=== PATIENT | male | born 1980 | race Caucasian/White ===

== ENCOUNTER → 2023-02-15 | Outpatient (CLI) | payer OTHER, SELFPAY ==
[2023-02-15 12:49] LABS: Absolute Lymphocyte Count 1.12 X10^3/uL (0.83-4.51); Basophil# 0.02 X10^3/uL; Basophil% 0.4 % (0-1); Lymphocyte # 1.12 X10^3/ul (0.83-4.51); Lymphocyte % 23.3 % (19-41); Mean Corp Hgb Conc 35.6 g/dL (32-36); Mean Corpuscular Hgb 31.6 pg (27.0-32.0); Mean Corpuscular Volume 88.9 fL (80-94); Mean Platelet Vol. 9.4 fl (6.2-12.0); Monocyte# 0.62 X10^3/uL; Monocyte% 12.9 % (0-10); NRBC Flagged by Analyzer 0 % (0-5); Neutrophil # 3.03 X10^3/uL (2.7-7.7); Neutrophil % 63.2 % (47-70); Platelet Count 125 K/mm3 (150-450); RBC Distribution Width SD 38.7 fl (35.1-43.9); Red Blood Count 5.06 M/mm3 (4.6-6.2); White Blood Count 4.8 K/mm3 (4.4-11.0)
[2023-02-15 13:05] LABS: ALB/GLOB Ratio 1.2 RATIO (0.9-2.4); AST(SGOT) 27 U/L (15-37); Alanine Aminotransfer ALT/SGPT 30 U/L (16-61); Albumin, Serum 4.1 g/dL (3.2-5.0); Alkaline Phosphatase 79 U/L (45-117); Anion Gap 5 (5-15); BUN 12 mg/dL (7-18); BUN/Creat Ratio 10.2 RATIO (10-20); Calcium,Total 8.9 mg/dL (8.5-10.1); Chloride 103 mmol/L (98-107); Creatinine, Serum 1.18 mg/dL (0.70-1.30); EST Glomerular Filtration Rate 71 mL/min (>60); Est Glom Filt Rate - Afr Amer 86 mL/min (>60); Globulin 3.3 g/dL (2.2-4.2); Glucose 98 mg/dL (74-106); Potassium 3.7 mmol/L (3.5-5.1); Protein, Total 7.4 g/dL (6.4-8.2); Sodium Level 136 mmol/L (136-145)
== END | disposition home or self-care (01) ==
DX: R19.7 Diarrhea, unspecified (principal)
CPT/HCPCS: 36415; 80053; 85025

== ENCOUNTER 2023-03-26 17:07 | Emergency (ER) | payer OTHER, SELFPAY ==
[2023-03-26 17:10] VITALS: BP 133/74; PULSE 73; RESP 14; TEMP 36.4; O2SAT 98; BMI 26.9
--- NOTE | 2023-03-26 17:51 | RAD_ITS ---
EXAM: XR LEFT FINGERS, 2 OR MORE VIEWS CLINICAL INDICATION: injury -- index TECHNIQUE: Frontal, lateral and oblique views of the fingers of the left hand. COMPARISON: No relevant prior studies available. FINDINGS: BONES/JOINTS: See below. SOFT TISSUES: There is soft tissue laceration of the tip of the 2nd digit. There is no underlying fracture. No soft tissue swelling or gas. No radiopaque foreign body. RAD/Finger(s) Min 2 Views IMPRESSION: There is soft tissue laceration of the tip of the 2nd digit. There is no underlying fracture. Electronically Signed: Dao Bonilla MD at 18:55 EDT ,
--- NOTE | 2023-03-26 17:52 | EX.ED.UPPERE ---
HPI History of Present Illness Chief Complaint: Upper Extremity Injury Detail of Chief Complaint: Left index finger injury Informant: patient Onset/Context/Timing Onset: Today Current Severity: Mild Maximum Severity: Moderate Narrative Narrative: Patient presents with injury to his left index finger. 6 to 8 hours ago he was at work and got his finger smashed between 2 logs. He has a large laceration of the distal aspect of his left index finger. He is right-hand dominant. He is unsure of his last tetanus update. PFSH PFSH Medical History no medical history no medical history Home Medications cephalexin 500 mg capsule 500 mg PO Q12 #14 CAPSULES 03/26/23 [Rx Last Taken Unknown] Allergy/AdvReac Type Severity Reaction Status Date / Time No Known Allergies Allergy Verified 03/26/23 17:09 Social History Smoking Status: Never smoker ROS ROS ED Constitutional Constitutional ED: Denies chills or fever(s) Eyes Eyes: Denies discharge from eye(s) ENT ENT ED: Denies discharge from eye(s), rhinorrhea or sore throat Cardiovascular Cardiovascular: Denies chest pain Respiratory/Chest Respiratory/Chest: Denies cough or dyspnea Gastrointestinal Gastrointestinal: Denies abdominal pain, nausea or vomiting Musculoskeletal Musculoskeletal: Reports extremity pain; Denies back pain Integumentary Reports other Details: Laceration ; Denies Abrasions or rash Neurologic Neurologic: Denies headache(s) or weakness Psychiatric Psychiatric: Denies anxiety or depression Allergic/Immunologic Allergic/Immunologic ED: Denies lip swelling or urticaria EXAM Physical Exam Const Vital Signs: 03/26/23 17:10 Temperature 97.6 F L Temperature Source Temporal Pulse Rate 73 Respiratory Rate 14 Blood Pressure 133/74 H Blood Pressure Mean 93 Pulse Ox 98 Oxygen Delivery Method Room Air Positive well nourished and well developed General Appearance ED: well developed HEENT Reports normocephalic and head/scalp atraumatic Eyes PERRL and EOMs intact bilaterally Neck supple Chest Wall inspection of chest normal and palpation of chest normal Resp normal respiratory effort and clear to auscultation bilaterally Cardio regular rate and regular rhythm GI non-tender Palpation: soft Extremity Extremity Narrative: Large laceration over the distal aspect of the left index finger. Nail has been completely avulsed. Neuro oriented x3 Sensorium / Orientation: alert Psych mental status grossly normal MDM MDM MDM Narrative Medical decision making narrative: Patient declined anything for pain. Tetanus is updated. Left index finger x-rays obtained to evaluate for fracture. Treatment and Re-Evaluation Narrative: Left index finger x-ray per my interpretation reveals no evidence of bony injury. Soft tissue injury is noted. Digital block is performed with 3.5 cc of 1% lidocaine. Patient receives good anesthesia. Wound is thoroughly cleansed and irrigated. A total of 8 sutures are placed to repair the wound. 7 sutures are 5-0 nylon and 1 suture across the nailbed is 5 -0 rapid Vicryl. Finger will be cleansed and splinted. He will be treated with antibiotics. He does not want anything for pain at home. Patient is to have sutures removed in 1 week. Discharge Plan Triage Chief Complaint: Upper Extremity Injury ED Provider: Amna Wells Dx/Rx/DC Orders Clinical Impression: Finger laceration, Avulsion of nail Instructions: ED Crush Injury, Hand, ED Laceration, Hand: All Closures, ED Detached Fingernail or Toenail Prescriptions: New cephalexin 500 mg capsule 500 mg PO Q12 Qty: 14 0RF Primary Care Provider: Care Physician,No Primary Referrals: Meghan Clement MD [Med Staff - Procurement Coordinator] - 7 Days for suture removal Care Physician,No Primary [Primary Care Provider] - Disposition Disposition: Home, Self Care
[2023-03-26] MEDS: Diphth,Pertuss(Acell),Tet Vac 0.5 ML Vial IM (18:02)
[2023-03-26] MEDS: Lidocaine 1% (20 ml mdv) 20 ML Vial INFILT (18:03)
== END 2023-03-26 19:03 | disposition home or self-care (01) ==
PROVIDERS: Emergency Provider Emergency Medicine; Visit Provider Emergency Medicine
DX: S61.311A Laceration without foreign body of left index finger with damage to nail, initial encounter (principal); W23.1XXA Caught, crushed, jammed, or pinched between stationary objects, initial encounter
CPT/HCPCS: 12002; 11760; 73140; 90715; 99285